=== PATIENT | male | born 1955 | race Caucasian/White ===

== ENCOUNTER 2016-07-18 08:22 | Emergency (ER) | payer OTHER ==
[2016-07-18] MEDS ORDERED: Heparin Sodium 5,000 Units/ML Vial IVPUSH ONE (09:00)
[2016-07-18] MEDS ORDERED: Metoprolol Tartrate 5 MG/5 ML SDV ONE (09:10)
[2016-07-18] MEDS ORDERED: Heparin Sodium 5,000 Units/ML Vial ONE (09:10)
[2016-07-18] MEDS ORDERED: Alteplase 2 MG Vial IVPUSH ONE (09:10)
[2016-07-18] MEDS ORDERED: Nitroglycerin/D5W 25 MG/250 ML BOTTLE ONE (09:11)
[2016-07-18] MEDS ORDERED: Clopidogrel 75 MG Tab PO ONE (09:14)
[2016-07-18] MEDS ORDERED: Aspirin 81 MG Tab.Chew PO ONE (09:14)
[2016-07-18] MEDS ORDERED: Metoprolol Tartrate 5 MG/5 ML SDV IVPUSH ONE (09:14)
[2016-07-18] MEDS ORDERED: Morphine 4 MG/ML Syringe IVPUSH ONE (09:15)
[2016-07-18] MEDS ORDERED: Nitroglycerin/D5W 25 MG/250 ML BOTTLE IV SCH (09:15)
[2016-07-18] MEDS ORDERED: Nitroglycerin 0.4 MG Tab.SL SL ONE (09:16)
[2016-07-18] MEDS ORDERED: Sodium Chloride 0.9% 10 ML Syringe FLUSH PRN (09:16)
[2016-07-18] MEDS: Heparin Sodium/D5W 25,000 UNITS/500 ML BAG ONE ×2 (09:20→09:53)
[2016-07-18] MEDS ORDERED: Sodium Chloride 0.9% 1,000 ML IV ONE (09:22)
[2016-07-18] MEDS ORDERED: Heparin Sodium/D5W 25,000 UNITS/500 ML BAG IV SCH (09:30)
[2016-07-18 21:25] VITALS: BP 126/77
--- NOTE | 2016-07-19 12:00 | CR ---
INDICATION: Chest discomfort. CHEST: An AP portable view of the chest was obtained x2, 07/18/2016, and revealed evidence of exogenous obesity as on the previous study of 09/08/2012 and 06/07/2012. Infiltrate present in the right upper lobe on the previous study is not definitely visualized at this time - a definite active infiltrate or effusion was not seen. The heart did not appear enlarged. Overlying EKG leads are noted. The aorta is somewhat tortuous. IMPRESSION: 1. No acute process. 2. Exogenous obesity. 3. Somewhat tortuous aorta. 4. Study somewhat limited by patients size and portable technique. Suggest full inspiration PA and lateral views when clinically possible for more complete evaluation. MTDD
--- NOTE | 2016-07-19 13:16 | ER ---
DATE SEEN: 07/18/2016 TIME SEEN: The patient was seen at 0845 hours. CHIEF COMPLAINT: Chest pain. HISTORY OF PRESENT ILLNESS: This 61-year-old status post 2000 LAD stent, 329- pound male had onset of chest pain at 0500 hours, that radiated to the left shoulder and intermittent without associated nausea, vomiting, diarrhea, diaphoresis, back pain, arm pain, jaw pain, neck pain, and lightheadedness. On arrival, at 0845, had ST-elevation anterior and lateral precordials. At 0848, , cardilogist, was called at [place]. 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 Dr. Potts has asked that lytics be utilized. Alteplase: 15 stat push, 50 over a half hour, 35 mg over the next half hour (alteplase). Heparin and clopidogrel 600 mg p.o. and 324-mg aspirin given. PHYSICAL EXAMINATION: GENERAL: Alert man in no acute distress. HEENT: PERRLA intact. Pharynx without abnormality. LUNGS: Clear to auscultation. HEART: S1, S2. No murmur. ABDOMEN: Soft. No guarding. No abdominal discomfort. Increased abdominal girth. No pedal edema. He has induration of left lower extremities (stasis dermatitis of venous insufficiency edema-induced increased skin turgor). Status post surgical pinning/left ankle fusion 04/26/2016. ASSESSMENT: Acute anterior lateral myocardial infarction. Arrangements were made for transfer with Dr. Thmoson, hospitalist, [place]. Dr. Lin here and writing other orders as these orders were placed. Dr. Lin will be assuming the patient's care. /[id number] HUMBERTO/SHANDA TANG
--- NOTE | 2016-08-03 01:37 | ER ---
DATE SEEN: 07/18/2016 This is regarding his note on 07/18/2016. As I previously indicated there was a change in shift and the other doctor was late, and I chose to have him finish and complete the others task. If he has not done that, then I will do that presently. In the future, just let me know. /[id number] HUMBERTO/SHANDA
== END 2016-07-18 10:10 | disposition home or self-care (01) ==
LOC: FB.ED 08:22
DX: I21.09 ST elevation (STEMI) myocardial infarction involving other coronary artery of anterior wall (principal)
CPT/HCPCS: 36415; 71010; 80053; 82550; 82553; 84484; 85025; 85610; 86140; 93005; 96365; 96368; 96375; 96376; 99285; A9270; J1644; J2270; J2997; J7040; J3490

== ENCOUNTER 2019-04-18 06:43 | Day surgery (SDC) | payer OTHER ==
[2019-04-18] MEDS ORDERED: Propofol 200 MG/20 ML SDV IV ONE (06:44)
[2019-04-18] MEDS ORDERED: Midazolam 1 MG/ML 2 ML SDV IV ONE (06:44)
[2019-04-18] MEDS ORDERED: Sodium Chloride 0.9% 10 ML Syringe FLUSH PRN (06:45)
[2019-04-18] MEDS ORDERED: Lactated Ringers 1,000 ML IV SCH (06:45)
[2019-04-18] MEDS ORDERED: Simethicone Drops 40 MG/0.6 ML 30 ML Bottle ONE (08:09)
--- NOTE | 2019-04-18 08:44 | PCM.OPNOTE ---
- General Post-Op/Procedure Note Date of Surgery/Procedure: 04/18/19 Operative Procedure(s): c scope with bx Findings: descending colon polyp Pre Op Diagnosis: screening colonoscopy Post-Op Diagnosis: descending colon polyp Anesthesia Technique: MAC Primary Surgeon: Elmer Phillips Anesthesia Provider: Sienna Gallo Pathology: descending colon polyp Complications: None Condition: Good Free Text/Narrative:: see dictation
[2019-04-18 09:53] VITALS: BP 134/67; PULSE 78
--- NOTE | 2019-04-18 12:52 | OR ---
DATE OF OPERATION: 04/18/2019 SURGEON: Elmer Phillips MD PREOPERATIVE DIAGNOSIS: Screening for colon cancer. POSTOPERATIVE DIAGNOSIS: Descending colon polyp. PROCEDURE PERFORMED: Colonoscopy with cold forceps biopsy. INDICATIONS FOR PROCEDURE: This is a 63-year-old white male who presents for his followup scope. He was offered and accepted same. DESCRIPTION OF OPERATION: After an excellent IV sedation was administered, digital rectal exam was performed. No marked abnormality was noted. Flexible colonoscope was inserted and advanced to the cecum. The prep was good. There were some areas that we had to irrigate because of some foaming. It should be noted that he did have some fair amount of spasm as well, but we were able to get a good view of the colon. Following findings were noted. Ascending colon, unremarkable. Transverse colon was unremarkable. Descending colon, small polypoid lesion, biopsied with cold biopsy forceps and sent for permanent. Sigmoid and rectum, unremarkable. Colon was deflated. Scope was removed. The patient tolerated the procedure well and was taken to recovery in good condition. Results by letter. /[id number] /MODL
== END 2019-04-18 09:40 | disposition home or self-care (01) ==
LOC: FB.SDS 06:43
PROVIDERS: ATTEND Surgery
DX: Z12.11 Encounter for screening for malignant neoplasm of colon (principal); K63.5 Polyp of colon; I10 Essential (primary) hypertension; I25.10 Atherosclerotic heart disease of native coronary artery without angina pectoris; E11.9 Type 2 diabetes mellitus without complications; E78.00 Pure hypercholesterolemia, unspecified; E66.01 Morbid (severe) obesity due to excess calories; Z68.42 Body mass index [BMI] 45.0-49.9, adult; Z79.84 Long term (current) use of oral hypoglycemic drugs; Z79.899 Other long term (current) drug therapy; Z79.82 Long term (current) use of aspirin; Z88.0 Allergy status to penicillin
CPT/HCPCS: 45380; 82962; 88305; A9270; J2250; J2704; J7120

== ENCOUNTER 2020-12-15 12:39 | Inpatient (IN) | payer OTHER ==
--- NOTE | 2020-12-15 12:46 | PCM.HP.2 ---
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 He has a h/o CHF,ischemic cardiomyopathy ( EF 40%),DM 2,stable with a recent A1c Of 6%. He has Obesity,CAD,and HTN that are otherwise stable.He does not endorse any other symptoms to indicate an alterative source of infection. - Related Data Allergies/Adverse Reactions: Allergies Allergy/AdvReac Type Severity Reaction Status Date / Time Penicillins Allergy Cannot Verified 04/18/19 07:38 Remember Home Medications: Home Meds Acetaminophen [Tylenol] 650 mg PO Q6HR PRN 04/16/19 [History] Aspirin [Halfprin] 81 mg PO DAILY 04/16/19 [History] Calcium Carbonate/Vitamin D3 [Calcium Carbonate/Vitamin D 600 MG-200 Unit] 1 tab PO BID 04/16/19 [History] Cholecalciferol (Vitamin D3) [Cholecalciferol] 1 gm MC BEDTIME 04/16/19 [History] Ferrous Sulfate 325 mg PO BEDTIME 04/16/19 [History] Furosemide [Lasix] 60 mg PO DAILY 04/16/19 [History] Metoprolol Succinate [Toprol XL 100mg] 100 mg PO DAILY 04/16/19 [History] Multivitamin with Folic Acid [Thera Tablet] 400 mcg PO BID 04/16/19 [History] Naproxen Sodium [Aleve] 220 mg PO DAILY 04/16/19 [History] Nitroglycerin [Nitrostat] 0.4 mg SL ASDIRECTED 04/16/19 [History] Sacubitril/Valsartan [Entresto 97 mg-103 mg Tablet] 1 each PO BID 04/16/19 [Hi story] atorvaSTATin [Lipitor] 80 mg PO BEDTIME 04/16/19 [History] metFORMIN [Glucophage] 1,000 mg PO BIDMEALS 04/16/19 [History] Past Medical History HEENT History: Reports: Cataract Cardiovascular History: Reports: Cardiomyopathy, High Cholesterol, Hypertension, [place], Pacemaker Other Cardiovascular History: coronary atherosclerosis, BILATERAL EDEMA OF LOWER EXTREMITY, DEPRESSED LEFT VENTRICULAR EF Respiratory History: Reports: Sleep Apnea Musculoskeletal History: Reports: Fracture Endocrine/Metabolic History: Reports: Diabetes, Type II, Obesity/BMI 30+ - Past Surgical History HEENT Surgical History: Reports: Tonsillectomy Other HEENT Surgeries/Procedures: TEETH EXTRACTION Cardiovascular Surgical History: Reports: Coronary Artery Stent Other Cardiovascular Surgeries/Procedures: CARDIAC CATHETERIZATION, PACEMAKER INSERTION GI Surgical History: Reports: Colonoscopy, Other (See Below) Other GI Surgeries/Procedures: LAP GASTRIC BYPASS Other Musculoskeletal Surgeries/Procedures:: ANKLE FUSION, ARTHRODESIS Social & Family History - Caffeine Use Caffeine Use: Reports: Coffee H&P Review of Systems - Review of Systems: Review Of Systems: Comprehensive ROS is negative, except as noted in HPI. Exam - Exam Exam: See Below - Exam General: Alert, Oriented, Cooperative HEENT: PERRLA Neck: Supple Lungs: Clear to Auscultation, Rhonchi Cardiovascular: Regular Rate GI/Abdominal Exam: Normal Bowel Sounds Back Exam: Normal Inspection Extremities: Increased Warmth, Redness, Other (Right lef is warm. A medial heel ulcer is noted. Tender.) Skin: Warm, Dry Neurological: Cranial Nerves Intact Neuro Extensive - Mental Status: Alert, Oriented x3, Normal Mood/Affect Neuro Extensive - Motor, Sensory, Reflexes: CN II-XII Intact Psychiatric: Alert, Normal Affect - Problem List (1) Diabetic infection of right foot SNOMED Code(s): 82930297 ICD Code: E11.628 - TYPE 2 DIABETES MELLITUS WITH OTHER SKIN COMPLICATIONS; L08.9 - LOCAL INFECTION OF THE SKIN AND SUBCUTANEOUS TISSUE, UNSP Status: Acute Current Visit: Yes (2) Diabetes type 2, controlled SNOMED Code(s): 11078359, 571029115 ICD Code: E11.9 - TYPE 2 DIABETES MELLITUS WITHOUT COMPLICATIONS Status: Chronic Current Visit: Yes Qualifiers: Diabetes mellitus predatory animal exterminator insulin use: without predatory animal exterminator use Diabetes mellitus complication status: without complication Qualified Code(s): E11.9 - Type 2 diabetes mellitus without complications (3) Obesity SNOMED Code(s): 604352921, 216910726 ICD Code: E66.9 - OBESITY, UNSPECIFIED Status: Chronic Current Visit: Yes Qualifiers: Obesity type: due to excess calories (4) Ischemic cardiomyopathy SNOMED Code(s): 119336668 ICD Code: I25.5 - ISCHEMIC CARDIOMYOPATHY Status: Acute Current Visit: Yes (5) CAD (coronary artery disease) SNOMED Code(s): 84951286 ICD Code: I25.10 - ATHSCL HEART DISEASE OF [place] CORONARY ARTERY W/O ANG PCTRS Status: Chronic Current Visit: Yes (6) CKD (chronic kidney disease) SNOMED Code(s): 792352423 ICD Code: N18.9 - CHRONIC KIDNEY DISEASE, UNSPECIFIED Status: Chronic Current Visit: Yes Qualifiers: Chronic kidney disease stage: stage 2 (mild) Qualified Code(s): N18.2 - Chronic kidney disease, stage 2 (mild) (7) HTN (hypertension) SNOMED Code(s): 22947209 ICD Code: I10 - ESSENTIAL (PRIMARY) HYPERTENSION Status: Chronic Current Visit: Yes Qualifiers: Hypertension type: primary hypertension Qualified Code(s): I10 - Essential (primary) hypertension Problem List Initiated/Reviewed/Updated: Yes Orders Last 24hrs: Active Orders 24 hr Category Date Time Status Patient Status [ADT] Routine ADT 12/15/20 12:40 Ordered Blood Glucose Check, Bedside [RC] TIDMEALS Care 12/15/20 12:40 Ordered Height and Weight [RC] DAILY Care 12/15/20 12:40 Ordered Oxygen Therapy [RC] PRN Care 12/15/20 12:40 Ordered Up ad Catie [RC] ASDIRECTED Care 12/15/20 12:40 Ordered VTE/DVT Education [RC] Per Unit Routine Care 12/15/20 12:40 Ordered Vital Signs [RC] Q4H Care 12/15/20 12:40 Ordered Consistent Carbohydrate Diet [DIET] Diet 12/15/20 Breakfast Ordered C-REACTIVE PROTEIN [CHEM] Routine Lab 12/15/20 12:40 Ordered CBC WITH AUTO DIFF [HEME] AM Lab 12/16/20 05:11 Ordered CBC WITH AUTO DIFF [HEME] Stat Lab 12/15/20 12:40 Ordered COMPREHENSIVE METABOLIC PN,CMP [CHEM] AM Lab 12/16/20 05:11 Ordered COMPREHENSIVE METABOLIC PN,CMP [CHEM] Stat Lab 12/15/20 12:40 Ordered CULTURE BLOOD [BC] Urgent Lab 12/15/20 12:42 Ordered CULTURE BLOOD [BC] Urgent Lab 12/15/20 12:42 Ordered CULTURE MRSA [RM] Stat Lab 12/15/20 12:40 Ordered SEDIMENTATION RATE MANUAL [HEME] Stat Lab 12/15/20 12:40 Ordered Acetaminophen [TylenoL] Med 12/15/20 12:40 Ordered 650 mg PO Q4H PRN Sodium Chloride 0.9% [Saline Flush] Med 12/15/20 12:40 Ordered 10 ml FLUSH ASDIRECTED PRN Vancomycin 1 gm Med 12/15/20 13:00 Ordered Sodium Chloride 0.9% [Normal Saline] 250 ml IV Q12H cefTRIAXone [Rocephin] Med 12/15/20 12:45 Ordered 1 gm IVPUSH Q24H Blood Culture x2 Reflex Set [OM.PC] Urgent Oth 12/15/20 12:40 Ordered Peripheral IV Insertion Adult [OM.PC] Routine Oth 12/15/20 12:40 Ordered Resuscitation Status Routine Resus Stat 12/15/20 12:40 Ordered Assessment/Plan Comment:: Admit to inpatient for parenteral antibiotics. I have elected Ceftriaxone and Vancomycin for pharmacy to dose. I suggest an MRI of the foot to classify the ulcer,and rule out Osteomyelitis.May need debridement by general surgery .
[2020-12-15] MEDS: Sodium Chloride 0.9% 10 ML Syringe FLUSH PRN ×3 (14:00→16:04)
[2020-12-15] MEDS: cefTRIAXone 1 GM Vial IVPUSH SCH (14:08)
--- NOTE | 2020-12-15 14:22 | PCM.SN.2 ---
- Free Text/Narrative Note: [facility] Date: 12/15/2020 Time: 1351 to 1400 Dx: DM type 2 with nonhealing foot ulcer, Antibiotic Therapy and Poor Peripheral Venous Access Rx: Obtain Peripheral Venous Access Procedure: Placement Peripheral Venous Access I found a vein on his right lateral ACF area and prepped the area with several alcohol wipes. Using a BD [employer] BC Winged 20 Ga. X 1.16 In. catheter, I attempted insertion times 2 with easy advancement and 10 ml's of normal saline flush. I placed a sterile Op-Site dressing on. He tolerated this very well. Kristian Miles CRNA, A
[2020-12-15] MEDS ORDERED: traMADol 50 MG Tab PO PRN (16:00)
[2020-12-15] MEDS ORDERED: Acetaminophen 325 MG Tab PO PRN (16:01)
[2020-12-15] MEDS: VANCOmycin 2 GM/400 ML 400 ML IV SCH (16:04)
[2020-12-15] MEDS: Ketorolac 30 MG/ML SDV IVPUSH PRN (16:09)
[2020-12-15] MEDS: Acetaminophen 325 MG Tab PO PRN (17:10)
[2020-12-15] MEDS: metFORMIN 1,000 MG Tab PO SCH (17:20)
[2020-12-15] MEDS: atorvaSTATin 40 MG Tab PO SCH (21:09)
[2020-12-15] MEDS: Calcium Carbonate 500 MG Tablet PO SCH (21:09)
[2020-12-15] MEDS: Multivitamin Tab PO SCH (21:10)
[2020-12-15] MEDS: VALSARTAN PO SCH (21:11)
[2020-12-15] MEDS: SACUBITRIL PO SCH (21:11)
[2020-12-16] MEDS: VANCOmycin 2 GM/400 ML 400 ML IV SCH ×2 (04:10→16:10)
[2020-12-16] MEDS: Sodium Chloride 0.9% 10 ML Syringe FLUSH PRN ×3 (04:24→16:04)
[2020-12-16] MEDS: Acetaminophen 325 MG Tab PO PRN ×3 (04:54→20:44)
[2020-12-16] MEDS ORDERED: Gadoteridol 279.3 MG/ML 20 ML SDV IV ONE (08:40)
[2020-12-16] MEDS: metFORMIN 1,000 MG Tab PO SCH ×2 (09:13→17:50)
[2020-12-16] MEDS: Furosemide 40 MG Tab PO SCH (09:18)
[2020-12-16] MEDS: Multivitamin Tab PO SCH ×2 (09:18→20:41)
[2020-12-16] MEDS: Calcium Carbonate 500 MG Tablet PO SCH ×2 (09:18→20:41)
[2020-12-16] MEDS: Aspirin 81 MG Tab.EC PO SCH (09:18)
[2020-12-16] MEDS: SACUBITRIL PO SCH ×2 (09:19→20:41)
[2020-12-16] MEDS: VALSARTAN PO SCH ×2 (09:19→20:41)
[2020-12-16] MEDS: Metoprolol Succinate 100 MG Tab.ER PO SCH (09:20)
--- NOTE | 2020-12-16 09:20 | PCM.PN ---
- General Info Date of Service: 12/16/20 Subjective Update: Sergio's has improved, his pain is much better. He has no more fever or any other systemic symptoms. - Review of Systems General: Reports: No Symptoms HEENT: Reports: No Symptoms Pulmonary: Reports: No Symptoms Cardiovascular: Reports: No Symptoms Gastrointestinal: Reports: No Symptoms - Patient Data Vitals - Most Recent: Last Vital Signs Temp 98.1 F 12/16/20 04:00 Pulse 86 12/16/20 04:00 Resp 20 12/16/20 04:00 BP 134/74 12/16/20 04:00 Pulse Ox 94 L 12/16/20 04:00 Weight - Most Recent: 146.17 kg I&O - Last 24 Hours: Intake & Output 12/15/20 12/16/20 12/16/20 22:59 06:59 14:59 Intake Total 400 400 Balance 400 400 Lab Results Last 24 Hours: Laboratory Results - last 24 hr 12/15/20 12/15/20 12/15/20 Range/Units 13:45 13:45 13:45 WBC 9.1 (3.2-10.1) x10-3/uL RBC 3.76 L (3.90-5.90) x10(6)uL Hgb 10.7 L (12.9-17.7) g/dL Hct 33.1 L (38.3-50.1) % MCV 88.1 (80.8-98.7) fL MCH 28.6 (27.0-33.3) pg MCHC 32.4 (28.7-35.3) g/dL RDW 13.9 (12.4-15.0) % Plt Count 236 (117-477) x10(3)uL MPV 8.0 (6.7-11.0) fL Neut % (Auto) 89.3 H (40.3-71.8) % Lymph % (Auto) 2.4 L (15.8-45.3) % Porter % (Auto) 7.5 (5.5-15.2) % Eos % (Auto) 0.4 (0.1-6.8) % Baso % (Auto) 0.4 (0.3-3.8) % Neut # (Auto) 8.1 H (1.7-6.9) x10-3/uL Lymph # (Auto) 0.2 L (0.5-4.5) x10-3/uL Porter # (Auto) 0.7 (0.0-1.2) x10-3/uL Eos # (Auto) 0.0 (0.0-0.6) x10-3/uL Baso # (Auto) 0.0 (0.0-0.3) x10-3/uL ESR 28 H (0-15) mm/hr Sodium 137 (135-145) mmol/L Potassium 4.4 (3.5-5.3) mmol/L Chloride 101 (100-110) mmol/L Carbon Dioxide 24 (21-32) mmol/L BUN 24 H (7-18) mg/dL Creatinine 1.6 H (0.70-1.30) mg/dL Est Cr Clr Drug Dosing 51.87 mL/min Estimated GFR (MDRD) 44 L (>60) BUN/Creatinine Ratio 15.0 (9-20) Glucose 159 H (80-116) mg/dL POC Glucose (80-116) mg/dL Calcium 9.2 (8.6-10.2) mg/dL Total Bilirubin 1.2 (0.1-1.3) mg/dL AST 19 (5-25) IU/L ALT 22 (12-36) U/L Alkaline Phosphatase 86 (56-112) IU/L C-Reactive Protein 12.7 H* (0.5-0.9) mg/dL Total Protein 7.0 (6.0-8.0) g/dL Albumin 3.4 (3.2-4.6) g/dL Globulin 3.6 g/dL Albumin/Globulin Ratio 0.9 12/15/20 12/16/20 12/16/20 Range/Units 17:16 06:05 06:05 WBC 7.1 (3.2-10.1) x10-3/uL RBC 3.61 L (3.90-5.90) x10(6)uL Hgb 10.3 L (12.9-17.7) g/dL Hct 31.8 L (38.3-50.1) % MCV 88.0 (80.8-98.7) fL MCH 28.5 (27.0-33.3) pg MCHC 32.4 (28.7-35.3) g/dL RDW 13.7 (12.4-15.0) % Plt Count 220 (117-477) x10(3)uL MPV 7.7 (6.7-11.0) fL Neut % (Auto) 80.4 H (40.3-71.8) % Lymph % (Auto) 5.8 L (15.8-45.3) % Porter % (Auto) 9.1 (5.5-15.2) % Eos % (Auto) 4.1 (0.1-6.8) % Baso % (Auto) 0.6 (0.3-3.8) % Neut # (Auto) 5.7 (1.7-6.9) x10-3/uL Lymph # (Auto) 0.4 L (0.5-4.5) x10-3/uL Porter # (Auto) 0.6 (0.0-1.2) x10-3/uL Eos # (Auto) 0.3 (0.0-0.6) x10-3/uL Baso # (Auto) 0.0 (0.0-0.3) x10-3/uL ESR (0-15) mm/hr Sodium 136 (135-145) mmol/L Potassium 4.6 (3.5-5.3) mmol/L Chloride 101 (100-110) mmol/L Carbon Dioxide 24 (21-32) mmol/L BUN 27 H (7-18) mg/dL Creatinine 1.6 H (0.70-1.30) mg/dL Est Cr Clr Drug Dosing 51.87 mL/min Estimated GFR (MDRD) 44 L (>60) BUN/Creatinine Ratio 16.9 (9-20) Glucose 135 H (80-116) mg/dL POC Glucose 192 H (80-116) mg/dL Calcium 8.3 L (8.6-10.2) mg/dL Total Bilirubin 1.0 (0.1-1.3) mg/dL AST 16 D (5-25) IU/L ALT 19 D (12-36) U/L Alkaline Phosphatase 80 (56-112) IU/L C-Reactive Protein (0.5-0.9) mg/dL Total Protein 6.4 (6.0-8.0) g/dL Albumin 3.0 L (3.2-4.6) g/dL Globulin 3.4 g/dL Albumin/Globulin Ratio 0.9 Med Orders - Current: Current Medications Acetaminophen (Acetaminophen 325 Mg Tab) 650 mg PO Q4H PRN PRN Reason: Pain (Mild 1-3)/fever Last Admin: 12/16/20 04:54 Dose: 650 mg Documented by: Acetaminophen (Acetaminophen 325 Mg Tab) 325 mg PO Q4H PRN PRN Reason: Pain Aspirin (Aspirin 81 Mg Tab.Ec) 81 mg PO DAILY [facility] Atorvastatin Calcium (Atorvastatin 40 Mg Tab) 40 mg PO BEDTIME [facility] Last Admin: 12/15/20 21:09 Dose: 40 mg Documented by: Calcium Carbonate/Glycine (Calcium Carbonate 500 Mg Tablet) 500 mg PO BID [facility] Last Admin: 12/15/20 21:09 Dose: 500 mg Documented by: Ceftriaxone Sodium (Ceftriaxone 1 Gm Vial) 1 gm IVPUSH Q24H [facility] Last Admin: 12/15/20 14:08 Dose: 1 gm Documented by: Furosemide (Furosemide 40 Mg Tab) 40 mg PO DAILY [facility] Gadoteridol (Gadoteridol 279.3 Mg/Ml 20 Ml Sdv) 20 ml IV . DIRECTED ONE Stop: 12/16/20 08:41 Vancomycin HCl (Vancomycin 2 Gm/400 Ml) 400 mls @ 200 mls/hr IV Q12H [facility] Last Admin: 12/16/20 04:10 Dose: 200 mls/hr Documented by: Ketorolac Tromethamine (Ketorolac 30 Mg/Ml Sdv) 30 mg IVPUSH Q6H PRN PRN Reason: Breakthrough Pain Stop: 12/20/20 16:00 Last Admin: 12/15/20 16:09 Dose: 30 mg Documented by: Metformin HCl (Metformin 1,000 Mg Tab) 1,000 mg PO BIDMEALS [facility] Last Admin: 12/15/20 17:20 Dose: 1,000 mg Documented by: Metoprolol Succinate (Metoprolol Succinate 100 Mg Tab.Er) 100 mg PO DAILY [facility] Multivitamins/Minerals/Vitamin C (Multivitamin Tab) 1 tab PO BID [facility] Last Admin: 12/15/20 21:10 Dose: 1 tab Documented by: Entresto 97 Mg-103 (Mg Table *Ptom) 1 each PO BID [facility] Last Admin: 12/15/20 21:11 Dose: 1 each Documented by: Sitagliptin Phosphate (Sitagliptin 100 Mg Tab) 100 mg PO DAILY [facility] Sodium Chloride (Sodium Chloride 0.9% 10 Ml Syringe) 10 ml FLUSH ASDIRECTED PRN PRN Reason: Keep Vein Open Last Admin: 12/16/20 04:24 Dose: 10 ml Documented by: Tramadol HCl (Tramadol 50 Mg Tab) 50 mg PO Q6H PRN PRN Reason: Breakthrough Pain Vancomycin HCl (Pharmacy To Dose - Vancomycin) 1 dose .XX ASDIRECTED PRUDENCIO - Exam General: Alert, Oriented Extremities: Other (Right foot ulcer noted. invoming subcutaneus tissue.pulses present). No: Pedal Edema - Patient Data Lab Results Last 24 hrs: Laboratory Results - last 24 hr 12/15/20 12/15/20 12/15/20 Range/Units 13:45 13:45 13:45 WBC 9.1 (3.2-10.1) x10-3/uL RBC 3.76 L (3.90-5.90) x10(6)uL Hgb 10.7 L (12.9-17.7) g/dL Hct 33.1 L (38.3-50.1) % MCV 88.1 (80.8-98.7) fL MCH 28.6 (27.0-33.3) pg MCHC 32.4 (28.7-35.3) g/dL RDW 13.9 (12.4-15.0) % Plt Count 236 (117-477) x10(3)uL MPV 8.0 (6.7-11.0) fL Neut % (Auto) 89.3 H (40.3-71.8) % Lymph % (Auto) 2.4 L (15.8-45.3) % Porter % (Auto) 7.5 (5.5-15.2) % Eos % (Auto) 0.4 (0.1-6.8) % Baso % (Auto) 0.4 (0.3-3.8) % Neut # (Auto) 8.1 H (1.7-6.9) x10-3/uL Lymph # (Auto) 0.2 L (0.5-4.5) x10-3/uL Porter # (Auto) 0.7 (0.0-1.2) x10-3/uL Eos # (Auto) 0.0 (0.0-0.6) x10-3/uL Baso # (Auto) 0.0 (0.0-0.3) x10-3/uL ESR 28 H (0-15) mm/hr Sodium 137 (135-145) mmol/L Potassium 4.4 (3.5-5.3) mmol/L Chloride 101 (100-110) mmol/L Carbon Dioxide 24 (21-32) mmol/L BUN 24 H (7-18) mg/dL Creatinine 1.6 H (0.70-1.30) mg/dL Est Cr Clr Drug Dosing 51.87 mL/min Estimated GFR (MDRD) 44 L (>60) BUN/Creatinine Ratio 15.0 (9-20) Glucose 159 H (80-116) mg/dL POC Glucose (80-116) mg/dL Calcium 9.2 (8.6-10.2) mg/dL Total Bilirubin 1.2 (0.1-1.3) mg/dL AST 19 (5-25) IU/L ALT 22 (12-36) U/L Alkaline Phosphatase 86 (56-112) IU/L C-Reactive Protein 12.7 H* (0.5-0.9) mg/dL Total Protein 7.0 (6.0-8.0) g/dL Albumin 3.4 (3.2-4.6) g/dL Globulin 3.6 g/dL Albumin/Globulin Ratio 0.9 12/15/20 12/16/20 12/16/20 Range/Units 17:16 06:05 06:05 WBC 7.1 (3.2-10.1) x10-3/uL RBC 3.61 L (3.90-5.90) x10(6)uL Hgb 10.3 L (12.9-17.7) g/dL Hct 31.8 L (38.3-50.1) % MCV 88.0 (80.8-98.7) fL MCH 28.5 (27.0-33.3) pg MCHC 32.4 (28.7-35.3) g/dL RDW 13.7 (12.4-15.0) % Plt Count 220 (117-477) x10(3)uL MPV 7.7 (6.7-11.0) fL Neut % (Auto) 80.4 H (40.3-71.8) % Lymph % (Auto) 5.8 L (15.8-45.3) % Porter % (Auto) 9.1 (5.5-15.2) % Eos % (Auto) 4.1 (0.1-6.8) % Baso % (Auto) 0.6 (0.3-3.8) % Neut # (Auto) 5.7 (1.7-6.9) x10-3/uL Lymph # (Auto) 0.4 L (0.5-4.5) x10-3/uL Porter # (Auto) 0.6 (0.0-1.2) x10-3/uL Eos # (Auto) 0.3 (0.0-0.6) x10-3/uL Baso # (Auto) 0.0 (0.0-0.3) x10-3/uL ESR (0-15) mm/hr Sodium 136 (135-145) mmol/L Potassium 4.6 (3.5-5.3) mmol/L Chloride 101 (100-110) mmol/L Carbon Dioxide 24 (21-32) mmol/L BUN 27 H (7-18) mg/dL Creatinine 1.6 H (0.70-1.30) mg/dL Est Cr Clr Drug Dosing 51.87 mL/min Estimated GFR (MDRD) 44 L (>60) BUN/Creatinine Ratio 16.9 (9-20) Glucose 135 H (80-116) mg/dL POC Glucose 192 H (80-116) mg/dL Calcium 8.3 L (8.6-10.2) mg/dL Total Bilirubin 1.0 (0.1-1.3) mg/dL AST 16 D (5-25) IU/L ALT 19 D (12-36) U/L Alkaline Phosphatase 80 (56-112) IU/L C-Reactive Protein (0.5-0.9) mg/dL Total Protein 6.4 (6.0-8.0) g/dL Albumin 3.0 L (3.2-4.6) g/dL Globulin 3.4 g/dL Albumin/Globulin Ratio 0.9 Result Diagrams: 12/16/20 06:05 12/16/20 06:05 Sepsis Event Note - Evaluation Sepsis Screening Result: No Definite Risk - Focused Exam Vital Signs: Vital Signs Temp Pulse Resp BP Pulse Ox 12/16/20 04:00 98.1 F 86 20 134/74 94 L 12/16/20 01:00 98.4 F 86 20 128/70 95 - Problem List & Annotations (1) Diabetic infection of right foot SNOMED Code(s): 51367331 Code(s): E11.628 - TYPE 2 DIABETES MELLITUS WITH OTHER SKIN COMPLICATIONS; L08.9 - LOCAL INFECTION OF THE SKIN AND SUBCUTANEOUS TISSUE, UNSP Status: Acute Current Visit: Yes (2) Diabetes type 2, controlled SNOMED Code(s): 95919564, 315892498 Code(s): E11.9 - TYPE 2 DIABETES MELLITUS WITHOUT COMPLICATIONS Status: Chronic Current Visit: Yes Qualifiers: Diabetes mellitus terminal operations manager insulin use: without long-term use Diabetes mellitus complication status: without complication Qualified Code(s): E11.9 - Type 2 diabetes mellitus without complications (3) Obesity SNOMED Code(s): 685548878, 058422462 Code(s): E66.9 - OBESITY, UNSPECIFIED Status: Chronic Current Visit: Yes Qualifiers: Obesity type: due to excess calories (4) Ischemic cardiomyopathy SNOMED Code(s): 100466633 Code(s): I25.5 - ISCHEMIC CARDIOMYOPATHY Status: Acute Current Visit: Yes (5) CAD (coronary artery disease) SNOMED Code(s): 45121567 Code(s): I25.10 - ATHSCL HEART DISEASE OF [place] CORONARY ARTERY W/O ANG PCTRS Status: Chronic Current Visit: Yes (6) CKD (chronic kidney disease) SNOMED Code(s): 295827553 Code(s): N18.9 - CHRONIC KIDNEY DISEASE, UNSPECIFIED Status: Chronic Current Visit: Yes Qualifiers: Chronic kidney disease stage: stage 2 (mild) Qualified Code(s): N18.2 - Chronic kidney disease, stage 2 (mild) (7) HTN (hypertension) SNOMED Code(s): 40379537 Code(s): I10 - ESSENTIAL (PRIMARY) HYPERTENSION Status: Chronic Current Visit: Yes Qualifiers: Hypertension type: primary hypertension Qualified Code(s): I10 - Essential (primary) hypertension - Problem List Review Problem List Initiated/Reviewed/Updated: Yes - My Orders Last 24 Hours: My Active Orders 12/15/20 12:40 Patient Status [ADT] Routine Blood Glucose Check, Bedside [RC] TIDMEALS Height and Weight [RC] 06 Oxygen Therapy [RC] PRN Up ad Catie [RC] ASDIRECTED VTE/DVT Education [RC] Per Unit Routine Vital Signs [RC] 08,12,16,20,00,04 Acetaminophen [TylenoL] 650 mg PO Q4H PRN Sodium Chloride 0.9% [Saline Flush] 10 ml FLUSH ASDIRECTED PRN Blood Culture x2 Reflex Set [OM.PC] Urgent Peripheral IV Insertion Adult [OM.PC] Routine Resuscitation Status Routine 12/15/20 12:45 cefTRIAXone [Rocephin] 1 gm IVPUSH Q24H 12/15/20 13:25 CULTURE MRSA [RM] Stat 12/15/20 13:45 CULTURE BLOOD [BC] Urgent 12/15/20 13:50 CULTURE BLOOD [BC] Urgent 12/15/20 16:00 Ketorolac [Toradol] 30 mg IVPUSH Q6H PRN VANCOmycin 2 GM/400 ML 400 ml IV Q12H traMADol [Ultram] 50 mg PO Q6H PRN 12/15/20 16:01 Acetaminophen [TylenoL] 325 mg PO Q4H PRN 12/15/20 16:15 Pharmacy to Dose - Vancomycin 1 dose .XX ASDIRECTED 12/15/20 18:00 metFORMIN [Glucophage] 1,000 mg PO BIDMEALS 12/15/20 21:00 Calcium Carbonate [Oyster Shell Calcium] 500 mg PO BID Multivitamins [Tab-A-Veronica] 1 tab PO BID Sacubitril/Valsartan [Entresto 97 mg-103 mg Tablet] 1 each PO BID atorvaSTATin [Lipitor] 40 mg PO BEDTIME 12/16/20 07:00 Lwr Ext Non Joint w wo Cont Rt [MR] Routine 12/16/20 08:40 Gadoteridol [ProHance] 20 ml IV . DIRECTED ONE 12/16/20 09:00 Aspirin [Halfprin] 81 mg PO DAILY Furosemide [Lasix] 40 mg PO DAILY Metoprolol Succinate [Toprol XL] 100 mg PO DAILY SitaGLIPtin [Januvia] 100 mg PO DAILY 12/17/20 03:30 VANCOMYCIN TROUGH [CHEM] Timed 12/17/20 05:11 BASIC METABOLIC PANEL,BMP [CHEM] AM CBC WITH AUTO DIFF [HEME] AM CRP [C-REACTIVE PROTEIN] [CHEM] AM SEDIMENTATION RATE MANUAL [HEME] AM - Plan Plan:: Continue IV antibiotics. Await MRI results. Continue local wound care, he might need debridement, and I will consult general surgery.
[2020-12-16] MEDS: cefTRIAXone 1 GM Vial IVPUSH SCH (13:18)
--- NOTE | 2020-12-16 17:32 | PCM.OPNOTE ---
- General Post-Op/Procedure Note Date of Surgery/Procedure: 12/16/20 Operative Procedure(s): Debridement of right foot ulcer Findings: superficial necrotic tissue on right foot ulcer Pre Op Diagnosis: Diabetic foot ulcer Post-Op Diagnosis: Same Primary Surgeon: Willie Magana Pathology: none EBL in mLs: 0 Complications: None Condition: Good Free Text/Narrative:: Intake & Output 12/16/20 12/16/20 12/16/20 06:59 14:59 22:59 Intake Total 400 400 Balance 400 400
[2020-12-16] MEDS: atorvaSTATin 40 MG Tab PO SCH (20:41)
--- NOTE | 2020-12-16 20:44 | PROC ---
DATE OF PROCEDURE: 12/16/2020 This 65-year-old male is seen today at the request of Dr. Dasilva for evaluation of a right diabetic foot ulcer. He thinks this first started about three weeks ago when he walked in his tennis shoes without socks. Three days ago, he began having pain at the site of a skin ulceration on the medial aspect of his right heel and infection was identified prompting hospitalization yesterday. The patient has been getting dressing changes and IV antibiotics for this. He says that he feels much better now than he did upon admission. He has remained afebrile. Review of his laboratory studies shows that his white blood cell count is normal. He also has a culture of this wound pending. Examination shows on the medial aspect of the right heel, a 1 cm full-thickness skin ulcer. There is some callus surrounding the area, but this is not a thick ulcer edge. I do not feel any crepitus or underlying fluctuance. There is some necrotic tissue visible in the base of the ulcer. Additional diagnostic data are that of an MRI, which was recently performed of this right foot. The MRI did not show any indication of underlying abscess or tunneling to the bone. Also, the bones of the heel were not felt to be involved with osteomyelitis. Because of the necrotic tissue in the wound, I advised sharp debridement of this to assist with wound healing, and the patient agrees to this. In the depths of this ulcer, then a small amount of superficial necrotic tissue was sharply excised with iris scissors. This was carried down to bleeding tissue and visible necrotic tissue was excised with this. This was tolerated well by the patient with minimal discomfort. Dressings were reapplied, and the patient will continue care with local wound care and IV antibiotics. I will see him back p.[email or web address] /[id number] [id number] DARRYL/SHANDA
[2020-12-17] MEDS: Ketorolac 30 MG/ML SDV IVPUSH PRN (03:52)
[2020-12-17] MEDS: Sodium Chloride 0.9% 10 ML Syringe FLUSH PRN ×2 (03:54→12:29)
[2020-12-17] MEDS: VANCOmycin 2 GM/400 ML 400 ML IV SCH (04:27)
[2020-12-17] MEDS: metFORMIN 1,000 MG Tab PO SCH ×2 (08:05→17:15)
[2020-12-17] MEDS: Metoprolol Succinate 100 MG Tab.ER PO SCH (08:06)
[2020-12-17] MEDS: Aspirin 81 MG Tab.EC PO SCH (08:06)
[2020-12-17] MEDS: Calcium Carbonate 500 MG Tablet PO SCH ×2 (08:08→20:37)
[2020-12-17] MEDS: Furosemide 40 MG Tab PO SCH (08:08)
[2020-12-17] MEDS: VALSARTAN PO SCH ×2 (08:09→20:37)
[2020-12-17] MEDS: SACUBITRIL PO SCH ×2 (08:09→20:37)
[2020-12-17] MEDS: Multivitamin Tab PO SCH ×2 (08:09→20:37)
--- NOTE | 2020-12-17 08:39 | PCM.PN ---
- General Info Date of Service: 12/17/20 Subjective Update: Sergio's has improved, his pain is much better after Toradol. He has no more fever or any other systemic symptoms.Dr Magana sharply debrided the ulcer. Functional Status: Reports: Pain Controlled, Tolerating Diet - Review of Systems General: Reports: No Symptoms HEENT: Reports: No Symptoms Pulmonary: Reports: No Symptoms Cardiovascular: Reports: No Symptoms Gastrointestinal: Reports: No Symptoms - Patient Data Vitals - Most Recent: Last Vital Signs Temp 98.8 F 12/17/20 04:00 Pulse 76 12/17/20 08:06 Resp 20 12/17/20 04:00 BP 118/76 12/17/20 08:06 Pulse Ox 93 L 12/17/20 04:00 Weight - Most Recent: 146.198 kg I&O - Last 24 Hours: Intake & Output 12/16/20 12/17/20 12/17/20 22:59 06:59 14:59 Intake Total 378 Balance 378 Lab Results Last 24 Hours: Laboratory Results - last 24 hr 12/16/20 12/16/20 12/17/20 Range/Units 13:17 17:45 03:30 WBC (3.2-10.1) x10-3/uL RBC (3.90-5.90) x10(6)uL Hgb (12.9-17.7) g/dL Hct (38.3-50.1) % MCV (80.8-98.7) fL MCH (27.0-33.3) pg MCHC (28.7-35.3) g/dL RDW (12.4-15.0) % Plt Count (117-477) x10(3)uL MPV (6.7-11.0) fL Neut % (Auto) (40.3-71.8) % Lymph % (Auto) (15.8-45.3) % [place] % (Auto) (5.5-15.2) % Eos % (Auto) (0.1-6.8) % Baso % (Auto) (0.3-3.8) % Neut # (Auto) (1.7-6.9) x10-3/uL Lymph # (Auto) (0.5-4.5) x10-3/uL [place] # (Auto) (0.0-1.2) x10-3/uL Eos # (Auto) (0.0-0.6) x10-3/uL Baso # (Auto) (0.0-0.3) x10-3/uL ESR (0-15) mm/hr Sodium (135-145) mmol/L Potassium (3.5-5.3) mmol/L Chloride (100-110) mmol/L Carbon Dioxide (21-32) mmol/L BUN (7-18) mg/dL Creatinine (0.70-1.30) mg/dL Est Cr Clr Drug Dosing mL/min Estimated GFR (MDRD) (>60) BUN/Creatinine Ratio (9-20) Glucose (80-116) mg/dL POC Glucose 168 H 155 H (80-116) mg/dL Calcium (8.6-10.2) mg/dL C-Reactive Protein (0.5-0.9) mg/dL Vancomycin Trough 28.2 H (<0.8) ug/mL 12/17/20 12/17/20 12/17/20 Range/Units 03:30 03:30 03:30 WBC 6.4 (3.2-10.1) x10-3/uL RBC 3.66 L (3.90-5.90) x10(6)uL Hgb 10.4 L (12.9-17.7) g/dL Hct 32.3 L (38.3-50.1) % MCV 88.0 (80.8-98.7) fL MCH 28.3 (27.0-33.3) pg MCHC 32.2 (28.7-35.3) g/dL RDW 13.9 (12.4-15.0) % Plt Count 248 (117-477) x10(3)uL MPV 7.7 (6.7-11.0) fL Neut % (Auto) 77.7 H (40.3-71.8) % Lymph % (Auto) 5.4 L (15.8-45.3) % [place] % (Auto) 10.8 (5.5-15.2) % Eos % (Auto) 5.4 (0.1-6.8) % Baso % (Auto) 0.7 (0.3-3.8) % Neut # (Auto) 5.0 (1.7-6.9) x10-3/uL Lymph # (Auto) 0.3 L (0.5-4.5) x10-3/uL [place] # (Auto) 0.7 (0.0-1.2) x10-3/uL Eos # (Auto) 0.3 (0.0-0.6) x10-3/uL Baso # (Auto) 0.0 (0.0-0.3) x10-3/uL ESR 33 H (0-15) mm/hr Sodium 138 (135-145) mmol/L Potassium 4.6 (3.5-5.3) mmol/L Chloride 104 (100-110) mmol/L Carbon Dioxide 23 (21-32) mmol/L BUN 33 H (7-18) mg/dL Creatinine 1.5 H (0.70-1.30) mg/dL Est Cr Clr Drug Dosing 55.33 mL/min Estimated GFR (MDRD) 47 L (>60) BUN/Creatinine Ratio 22.0 H (9-20) Glucose 169 H (80-116) mg/dL POC Glucose (80-116) mg/dL Calcium 8.8 (8.6-10.2) mg/dL C-Reactive Protein 9.1 H* (0.5-0.9) mg/dL Vancomycin Trough (<0.8) ug/mL 12/17/20 Range/Units 08:03 WBC (3.2-10.1) x10-3/uL RBC (3.90-5.90) x10(6)uL Hgb (12.9-17.7) g/dL Hct (38.3-50.1) % MCV (80.8-98.7) fL MCH (27.0-33.3) pg MCHC (28.7-35.3) g/dL RDW (12.4-15.0) % Plt Count (117-477) x10(3)uL MPV (6.7-11.0) fL Neut % (Auto) (40.3-71.8) % Lymph % (Auto) (15.8-45.3) % [place] % (Auto) (5.5-15.2) % Eos % (Auto) (0.1-6.8) % Baso % (Auto) (0.3-3.8) % Neut # (Auto) (1.7-6.9) x10-3/uL Lymph # (Auto) (0.5-4.5) x10-3/uL [place] # (Auto) (0.0-1.2) x10-3/uL Eos # (Auto) (0.0-0.6) x10-3/uL Baso # (Auto) (0.0-0.3) x10-3/uL ESR (0-15) mm/hr Sodium (135-145) mmol/L Potassium (3.5-5.3) mmol/L Chloride (100-110) mmol/L Carbon Dioxide (21-32) mmol/L BUN (7-18) mg/dL Creatinine (0.70-1.30) mg/dL Est Cr Clr Drug Dosing mL/min Estimated GFR (MDRD) (>60) BUN/Creatinine Ratio (9-20) Glucose (80-116) mg/dL POC Glucose 177 H (80-116) mg/dL Calcium (8.6-10.2) mg/dL C-Reactive Protein (0.5-0.9) mg/dL Vancomycin Trough (<0.8) ug/mL Rui Results Last 24 Hours: Microbiology 12/15/20 13:45 Aerobic Blood Culture - Preliminary Blood - Venous - Lab Draw NO GROWTH AFTER 1 DAY Anaerobic Blood Culture - Preliminary NO GROWTH AFTER 1 DAY 12/15/20 13:50 Aerobic Blood Culture - Preliminary Blood - Venous NO GROWTH AFTER 1 DAY Anaerobic Blood Culture - Preliminary NO GROWTH AFTER 1 DAY Med Orders - Current: Current Medications Acetaminophen (Acetaminophen 325 Mg Tab) 650 mg PO Q4H PRN PRN Reason: Pain (Mild 1-3)/fever Last Admin: 12/16/20 20:44 Dose: 650 mg Documented by: Acetaminophen (Acetaminophen 325 Mg Tab) 325 mg PO Q4H PRN PRN Reason: Pain Aspirin (Aspirin 81 Mg Tab.Ec) 81 mg PO DAILY [facility] Last Admin: 12/17/20 08:06 Dose: 81 mg Documented by: Atorvastatin Calcium (Atorvastatin 40 Mg Tab) 40 mg PO BEDTIME [facility] Last Admin: 12/16/20 20:41 Dose: 40 mg Documented by: Calcium Carbonate/Glycine (Calcium Carbonate 500 Mg Tablet) 500 mg PO BID [facility] Last Admin: 12/17/20 08:08 Dose: 500 mg Documented by: Ceftriaxone Sodium (Ceftriaxone 1 Gm Vial) 1 gm IVPUSH Q24H [facility] Last Admin: 12/16/20 13:18 Dose: 1 gm Documented by: Furosemide (Furosemide 40 Mg Tab) 40 mg PO DAILY [facility] Last Admin: 12/17/20 08:08 Dose: 40 mg Documented by: Vancomycin HCl (Vancomycin 1 Gm/200 Ml) 200 mls @ 200 mls/hr IV Q12H [facility] Ketorolac Tromethamine (Ketorolac 30 Mg/Ml Sdv) 30 mg IVPUSH Q6H PRN PRN Reason: Breakthrough Pain Stop: 12/20/20 16:00 Last Admin: 12/17/20 03:52 Dose: 30 mg Documented by: Metformin HCl (Metformin 1,000 Mg Tab) 1,000 mg PO BIDMEALS [facility] Last Admin: 12/17/20 08:05 Dose: 1,000 mg Documented by: Metoprolol Succinate (Metoprolol Succinate 100 Mg Tab.Er) 100 mg PO DAILY [facility] Last Admin: 12/17/20 08:06 Dose: 100 mg Documented by: Multivitamins/Minerals/Vitamin C (Multivitamin Tab) 1 tab PO BID [facility] Last Admin: 12/17/20 08:09 Dose: 1 tab Documented by: Entresto 97 Mg-103 (Mg Table *Ptom) 1 each PO BID [facility] Last Admin: 12/17/20 08:09 Dose: 1 each Documented by: Sitagliptin Phosphate (Sitagliptin 100 Mg Tab) 100 mg PO DAILY [facility] Last Admin: 12/17/20 08:08 Dose: 100 mg Documented by: Sodium Chloride (Sodium Chloride 0.9% 10 Ml Syringe) 10 ml FLUSH ASDIRECTED PRN PRN Reason: Keep Vein Open Last Admin: 12/17/20 03:54 Dose: 10 ml Documented by: Tramadol HCl (Tramadol 50 Mg Tab) 50 mg PO Q6H PRN PRN Reason: Breakthrough Pain Vancomycin HCl (Pharmacy To Dose - Vancomycin) 1 dose .XX ASDIRECTED [facility] Discontinued Medications Gadoteridol (Gadoteridol 279.3 Mg/Ml 20 Ml Sdv) 20 ml IV . DIRECTED ONE Stop: 12/16/20 08:41 Last Admin: 12/16/20 09:28 Dose: 20 ml Documented by: Vancomycin HCl (Vancomycin 2 Gm/400 Ml) 400 mls @ 200 mls/hr IV Q12H [facility] Last Admin: 12/17/20 04:27 Dose: Not Given Documented by: - Exam General: Alert, Oriented HEENT: Pupils Equal Extremities: No: Leg Pain Skin: Warm Neurological: No New Focal Deficit Psy/Mental Status: Alert, Normal Affect - Patient Data Lab Results Last 24 hrs: Laboratory Results - last 24 hr 12/16/20 12/16/20 12/17/20 Range/Units 13:17 17:45 03:30 WBC (3.2-10.1) x10-3/uL RBC (3.90-5.90) x10(6)uL Hgb (12.9-17.7) g/dL Hct (38.3-50.1) % MCV (80.8-98.7) fL MCH (27.0-33.3) pg MCHC (28.7-35.3) g/dL RDW (12.4-15.0) % Plt Count (117-477) x10(3)uL MPV (6.7-11.0) fL Neut % (Auto) (40.3-71.8) % Lymph % (Auto) (15.8-45.3) % [place] % (Auto) (5.5-15.2) % Eos % (Auto) (0.1-6.8) % Baso % (Auto) (0.3-3.8) % Neut # (Auto) (1.7-6.9) x10-3/uL Lymph # (Auto) (0.5-4.5) x10-3/uL [place] # (Auto) (0.0-1.2) x10-3/uL Eos # (Auto) (0.0-0.6) x10-3/uL Baso # (Auto) (0.0-0.3) x10-3/uL ESR (0-15) mm/hr Sodium (135-145) mmol/L Potassium (3.5-5.3) mmol/L Chloride (100-110) mmol/L Carbon Dioxide (21-32) mmol/L BUN (7-18) mg/dL Creatinine (0.70-1.30) mg/dL Est Cr Clr Drug Dosing mL/min Estimated GFR (MDRD) (>60) BUN/Creatinine Ratio (9-20) Glucose (80-116) mg/dL POC Glucose 168 H 155 H (80-116) mg/dL Calcium (8.6-10.2) mg/dL C-Reactive Protein (0.5-0.9) mg/dL Vancomycin Trough 28.2 H (<0.8) ug/mL 12/17/20 12/17/20 12/17/20 Range/Units 03:30 03:30 03:30 WBC 6.4 (3.2-10.1) x10-3/uL RBC 3.66 L (3.90-5.90) x10(6)uL Hgb 10.4 L (12.9-17.7) g/dL Hct 32.3 L (38.3-50.1) % MCV 88.0 (80.8-98.7) fL MCH 28.3 (27.0-33.3) pg MCHC 32.2 (28.7-35.3) g/dL RDW 13.9 (12.4-15.0) % Plt Count 248 (117-477) x10(3)uL MPV 7.7 (6.7-11.0) fL Neut % (Auto) 77.7 H (40.3-71.8) % Lymph % (Auto) 5.4 L (15.8-45.3) % [place] % (Auto) 10.8 (5.5-15.2) % Eos % (Auto) 5.4 (0.1-6.8) % Baso % (Auto) 0.7 (0.3-3.8) % Neut # (Auto) 5.0 (1.7-6.9) x10-3/uL Lymph # (Auto) 0.3 L (0.5-4.5) x10-3/uL [place] # (Auto) 0.7 (0.0-1.2) x10-3/uL Eos # (Auto) 0.3 (0.0-0.6) x10-3/uL Baso # (Auto) 0.0 (0.0-0.3) x10-3/uL ESR 33 H (0-15) mm/hr Sodium 138 (135-145) mmol/L Potassium 4.6 (3.5-5.3) mmol/L Chloride 104 (100-110) mmol/L Carbon Dioxide 23 (21-32) mmol/L BUN 33 H (7-18) mg/dL Creatinine 1.5 H (0.70-1.30) mg/dL Est Cr Clr Drug Dosing 55.33 mL/min Estimated GFR (MDRD) 47 L (>60) BUN/Creatinine Ratio 22.0 H (9-20) Glucose 169 H (80-116) mg/dL POC Glucose (80-116) mg/dL Calcium 8.8 (8.6-10.2) mg/dL C-Reactive Protein 9.1 H* (0.5-0.9) mg/dL Vancomycin Trough (<0.8) ug/mL 12/17/20 Range/Units 08:03 WBC (3.2-10.1) x10-3/uL RBC (3.90-5.90) x10(6)uL Hgb (12.9-17.7) g/dL Hct (38.3-50.1) % MCV (80.8-98.7) fL MCH (27.0-33.3) pg MCHC (28.7-35.3) g/dL RDW (12.4-15.0) % Plt Count (117-477) x10(3)uL MPV (6.7-11.0) fL Neut % (Auto) (40.3-71.8) % Lymph % (Auto) (15.8-45.3) % [place] % (Auto) (5.5-15.2) % Eos % (Auto) (0.1-6.8) % Baso % (Auto) (0.3-3.8) % Neut # (Auto) (1.7-6.9) x10-3/uL Lymph # (Auto) (0.5-4.5) x10-3/uL [place] # (Auto) (0.0-1.2) x10-3/uL Eos # (Auto) (0.0-0.6) x10-3/uL Baso # (Auto) (0.0-0.3) x10-3/uL ESR (0-15) mm/hr Sodium (135-145) mmol/L Potassium (3.5-5.3) mmol/L Chloride (100-110) mmol/L Carbon Dioxide (21-32) mmol/L BUN (7-18) mg/dL Creatinine (0.70-1.30) mg/dL Est Cr Clr Drug Dosing mL/min Estimated GFR (MDRD) (>60) BUN/Creatinine Ratio (9-20) Glucose (80-116) mg/dL POC Glucose 177 H (80-116) mg/dL Calcium (8.6-10.2) mg/dL C-Reactive Protein (0.5-0.9) mg/dL Vancomycin Trough (<0.8) ug/mL Result Diagrams: 12/17/20 03:30 12/17/20 03:30 Rui Results Last 24 hrs: Microbiology 12/15/20 13:45 Aerobic Blood Culture - Preliminary Blood - Venous - Lab Draw NO GROWTH AFTER 1 DAY Anaerobic Blood Culture - Preliminary NO GROWTH AFTER 1 DAY 12/15/20 13:50 Aerobic Blood Culture - Preliminary Blood - Venous NO GROWTH AFTER 1 DAY Anaerobic Blood Culture - Preliminary NO GROWTH AFTER 1 DAY Sepsis Event Note - Evaluation Sepsis Screening Result: No Definite Risk - Focused Exam Vital Signs: Vital Signs Temp Temp Pulse Pulse Resp BP BP 12/17/20 08:06 76 118/76 12/17/20 04:00 98.8 F 79 20 120/68 12/17/20 00:00 99.1 F 80 20 124/70 Pulse Ox 12/17/20 08:06 12/17/20 04:00 93 L 12/17/20 00:00 95 - Problem List & Annotations (1) Diabetic infection of right foot SNOMED Code(s): 84411630 Code(s): E11.628 - TYPE 2 DIABETES MELLITUS WITH OTHER SKIN COMPLICATIONS; L08.9 - LOCAL INFECTION OF THE SKIN AND SUBCUTANEOUS TISSUE, UNSP Status: Acute Current Visit: Yes (2) Diabetes type 2, controlled SNOMED Code(s): 26316496, 850421048 Code(s): E11.9 - TYPE 2 DIABETES MELLITUS WITHOUT COMPLICATIONS Status: Chronic Current Visit: Yes Qualifiers: Diabetes mellitus watcher [employer] goods insulin use: without watcher [employer] goods use Diabetes mellitus complication status: without complication Qualified Code(s): E11.9 - Type 2 diabetes mellitus without complications (3) Obesity SNOMED Code(s): 890407011, 369687658 Code(s): E66.9 - OBESITY, UNSPECIFIED Status: Chronic Current Visit: Yes Qualifiers: Obesity type: due to excess calories (4) Ischemic cardiomyopathy SNOMED Code(s): 939988543 Code(s): I25.5 - ISCHEMIC CARDIOMYOPATHY Status: Acute Current Visit: Yes (5) CAD (coronary artery disease) SNOMED Code(s): 60772467 Code(s): I25.10 - ATHSCL HEART DISEASE OF [place] CORONARY ARTERY W/O ANG PCTRS Status: Chronic Current Visit: Yes (6) CKD (chronic kidney disease) SNOMED Code(s): 690112470 Code(s): N18.9 - CHRONIC KIDNEY DISEASE, UNSPECIFIED Status: Chronic Current Visit: Yes Qualifiers: Chronic kidney disease stage: stage 2 (mild) Qualified Code(s): N18.2 - Ch ronic kidney disease, stage 2 (mild) (7) HTN (hypertension) SNOMED Code(s): 45484037 Code(s): I10 - ESSENTIAL (PRIMARY) HYPERTENSION Status: Chronic Current Visit: Yes Qualifiers: Hypertension type: primary hypertension Qualified Code(s): I10 - Essential (primary) hypertension - Problem List Review Problem List Initiated/Reviewed/Updated: Yes - My Orders Last 24 Hours: My Active Orders 12/16/20 09:00 Aspirin [Halfprin] 81 mg PO DAILY Furosemide [Lasix] 40 mg PO DAILY Metoprolol Succinate [Toprol XL] 100 mg PO DAILY SitaGLIPtin [Januvia] 100 mg PO DAILY 12/17/20 12:00 VANCOmycin 1 GM/200 ML 200 ml IV Q12H 12/19/20 11:30 VANCOMYCIN TROUGH [CHEM] Timed - Plan Plan:: Continue IV antibiotics. MRI showed no evidence of osteomyelitis. I appreciate the consultation from general surgery. I will continue one more day of IV antibiotics, and plan for discharge tomorrow.
[2020-12-17] MEDS: VANCOmycin 1 GM/200 ML 200 ML IV SCH (12:27)
[2020-12-17] MEDS: cefTRIAXone 1 GM Vial IVPUSH SCH (12:29)
[2020-12-17] MEDS: Acetaminophen 325 MG Tab PO PRN (17:21)
[2020-12-17] MEDS: atorvaSTATin 40 MG Tab PO SCH (20:36)
[2020-12-18] MEDS: VANCOmycin 1 GM/200 ML 200 ML IV SCH (00:21)
[2020-12-18] MEDS: Acetaminophen 325 MG Tab PO PRN (00:34)
[2020-12-18] MEDS: Ketorolac 30 MG/ML SDV IVPUSH PRN (01:35)
[2020-12-18] MEDS: metFORMIN 1,000 MG Tab PO SCH (08:15)
[2020-12-18] MEDS: Calcium Carbonate 500 MG Tablet PO SCH (08:16)
[2020-12-18] MEDS: Furosemide 40 MG Tab PO SCH (08:16)
[2020-12-18] MEDS: Aspirin 81 MG Tab.EC PO SCH (08:16)
[2020-12-18] MEDS: VALSARTAN PO SCH (08:17)
[2020-12-18] MEDS: Multivitamin Tab PO SCH (08:17)
[2020-12-18] MEDS: SACUBITRIL PO SCH (08:17)
[2020-12-18] MEDS: Metoprolol Succinate 100 MG Tab.ER PO SCH (08:17)
[2020-12-18 08:18] VITALS: BP 132/67; PULSE 83
--- NOTE | 2020-12-18 12:32 | DISCH ---
DISCHARGE DATE: 12/18/2020 REASON FOR ADMISSION: 1. Cellulitis, right foot. 2. Diabetic foot ulcer. 3. Obesity. 4. Type 2 diabetes. 5. History of CHF. 6. Chronic kidney disease. DISCHARGE DIAGNOSES: 1. Cellulitis, right foot. 2. Diabetic foot ulcer. 3. Obesity. 4. Type 2 diabetes. 5. History of CHF. 6. Chronic kidney disease. CONSULTATIONS: Dr. Magana for debridement. BRIEF HISTORY AND HOSPITAL COURSE: This is a 65-year-old male who was admitted to the clinic after he presented with a foot ulcer along with systemic symptoms of fever and chills. He was treated with Rocephin and vancomycin. Sharp debridement of the wound was performed by Dr. Magana. He has improved enough to go home today on oral antibiotics. I will send him home on cephalexin 500 mg p.o. t.i.d. x10 days. He is to stay off it and also see Podiatry in the clinic. A referral has been completed. I spent more than 35 minutes in the discharge of the patient. /[id number] CLARISSE/SHANDA
== END 2020-12-18 11:25 | disposition home or self-care (01) | DRG 264 ==
LOC: FB.MS 12:39
PROVIDERS: ADMIT Family Medicine; ATTEND Family Medicine
PROC: 0JBQ0ZZ Excision of Right Foot Subcutaneous Tissue and Fascia, Open Approach (ICD-10-PCS; principal; 2020-12-15)
DX: E11.52 Type 2 diabetes mellitus with diabetic peripheral angiopathy with gangrene (principal); L03.115 Cellulitis of right lower limb; I13.0 Hypertensive heart and chronic kidney disease with heart failure and stage 1 through stage 4 chronic kidney disease, or unspecified chronic kidney disease; I96 Gangrene, not elsewhere classified; E11.621 Type 2 diabetes mellitus with foot ulcer; E11.628 Type 2 diabetes mellitus with other skin complications; E78.00 Pure hypercholesterolemia, unspecified; I25.10 Atherosclerotic heart disease of native coronary artery without angina pectoris; G47.30 Sleep apnea, unspecified; E66.9 Obesity, unspecified; N18.2 Chronic kidney disease, stage 2 (mild); I25.5 Ischemic cardiomyopathy; E11.22 Type 2 diabetes mellitus with diabetic chronic kidney disease; N18.9 Chronic kidney disease, unspecified; I50.9 Heart failure, unspecified; Z90.89 Acquired absence of other organs; Z95.5 Presence of coronary angioplasty implant and graft; Z98.84 Bariatric surgery status; Z79.84 Long term (current) use of oral hypoglycemic drugs; I25.2 Old myocardial infarction; Z95.0 Presence of cardiac pacemaker; Z98.1 Arthrodesis status; Z79.82 Long term (current) use of aspirin; Z79.899 Other long term (current) drug therapy
CPT/HCPCS: 36410; 36415; 73720-RT; 80048; 80053; 80202; 82947; 85025; 85651; 86140; 87040; 87070; A9270-GY; A9579; J0696; J1885; J3370

== ENCOUNTER 2021-04-07 09:04 | Day surgery (SDC) | payer OTHER ==
[2021-04-07] MEDS ORDERED: Midazolam 1 MG/ML 2 ML SDV IV ONE (09:05)
[2021-04-07] MEDS ORDERED: fentaNYL 100 MCG/2 ML SDV IV ONE (09:05)
[2021-04-07] MEDS: Sodium Chloride 0.9% 10 ML Syringe FLUSH PRN (09:48)
[2021-04-07] MEDS: Lactated Ringers 1,000 ML IV SCH (09:49)
[2021-04-07] MEDS: acetaZOLAMIDE 500 MG Cap.ER PO ONE (11:23)
[2021-04-07 12:36] VITALS: BP 126/73; PULSE 67
--- NOTE | 2021-04-07 12:45 | OR ---
DATE OF OPERATION: 04/07/2021 SURGEON: Ericka Reed MD PREOPERATIVE DIAGNOSIS: Visually significant cataract, right eye. POSTOPERATIVE DIAGNOSIS: Visually significant cataract, right eye. PROCEDURES PERFORMED: Phacoemulsification with intraocular lens placement, right eye. ASSISTANTS: None. ANESTHESIA: Local with sedation. COMPLICATIONS: None. BLOOD LOSS: None. IMPLANTS: A pre-loaded DCB00 20.0 diopter lens implanted. CDE: 1.78. DESCRIPTION OF PROCEDURE: After risks and benefits were reviewed with the patient, consent was obtained in the preoperative area, and the operative eye was marked with a surgical pen. In the preoperative area, a pledget was used to dilate the pupil consisting of a mixture of phenylephrine 10%, cyclopentolate 2%, moxifloxacin 0.5%, and bupivacaine 0.75%. The patient was taken to the operating room, where a time-out was performed, and the patient was placed under monitored anesthesia care. Topical tetracaine was used for anesthesia. The operative eye was prepped and draped for ophthalmic surgery, and the microscope was brought into position and focused. A paracentesis incision was made, followed by injection of preservative-free 1% lidocaine into the anterior chamber, followed by injection of Viscoat into the anterior chamber. A microkeratome blade was used to make a corneal limbal incision temporally. A cystotome was used to make the beginning of the capsulorrhexis, which was carried around 360 degrees in a curvilinear fashion using Utrata forceps. A Garcia cannula with BSS was used to hydrodissect and hydrodelineate the nucleus. The nucleus was removed in a divide and conquer manner using phacoemulsification. Irrigation and aspiration were used to remove the remaining cortical material. Provisc was used to inflate the capsular bag, and a pre-loaded DCB00 20.0 diopter lens, serial number [id number] was injected into the capsular bag. A Sinskey hook was used to position and center the lens. Next, irrigation and aspiration was used to remove any remaining viscoelastic and cortical material from the anterior chamber. BSS on a cannula was used to inflate the anterior chamber and hydrate the wound. The wound was checked and found to be watertight. 1 mg of Moxifloxacin was injected into the anterior chamber. Drapes were removed and the eye was cleaned. A drop of brimonidine 0.2% and a drop of TobraDex was placed. The eye was shielded, and the patient was taken to the recovery room in stable condition. /[id number] CURT/SHANDA
== END 2021-04-07 11:55 | disposition home or self-care (01) ==
LOC: FB.SDS 09:04
PROVIDERS: ATTEND Ophthalmology
DX: E11.36 Type 2 diabetes mellitus with diabetic cataract (principal); H25.811 Combined forms of age-related cataract, right eye; H26.492 Other secondary cataract, left eye; E11.3293 Type 2 diabetes mellitus with mild nonproliferative diabetic retinopathy without macular edema, bilateral; H47.012 Ischemic optic neuropathy, left eye; E66.01 Morbid (severe) obesity due to excess calories; I10 Essential (primary) hypertension; I25.2 Old myocardial infarction; I25.10 Atherosclerotic heart disease of native coronary artery without angina pectoris; E78.00 Pure hypercholesterolemia, unspecified; Z98.890 Other specified postprocedural states; Z87.891 Personal history of nicotine dependence; Z88.0 Allergy status to penicillin; Z68.41 Body mass index [BMI] 40.0-44.9, adult; Z79.899 Other long term (current) drug therapy; Z79.84 Long term (current) use of oral hypoglycemic drugs; Z79.4 Long term (current) use of insulin; Z79.82 Long term (current) use of aspirin
CPT/HCPCS: 00142-QZ; 82947; A9270-GY; J2250; J3010; J7120; V2632

== ENCOUNTER 2023-11-18 12:16 | Inpatient (IN) | payer MEDICARE, OTHER ==
[2023-11-18] MEDS ORDERED: Non-Formulary Medication 1 Each (Docusate Sodium [Enemeez] 283 MG/5 ML Enema) RECTAL PRN (13:16)
[2023-11-18] MEDS ORDERED: Ondansetron 4 MG Tab.DIS PO PRN (13:16)
[2023-11-18] MEDS ORDERED: Famotidine 20 MG Tab PO PRN (13:16)
[2023-11-18] MEDS ORDERED: Nitroglycerin 0.4 MG Tab.SL SL PRN (13:16)
[2023-11-18] MEDS ORDERED: Carboxymethylcellulose Sodium 0.5% Ophth Soln 15 ML Bottle EYEBOTH PRN (13:49)
[2023-11-18] MEDS: oxyCODONE 5 MG Tab PO PRN (14:26)
[2023-11-18] MEDS: Acetaminophen 325 MG Tab PO PRN (14:27)
[2023-11-18] MEDS ORDERED: Insulin Lispro 100 Unit/ML 3 ML KwikPen SUBCUT ONE (17:40)
[2023-11-18] MEDS: Calcium Carbonate 500 MG Tablet PO SCH (17:45)
[2023-11-18] MEDS: Insulin Lispro 100 Unit/ML 3 ML KwikPen SUBCUT SCH (17:45)
[2023-11-18] MEDS: VALSARTAN PO SCH (20:25)
[2023-11-18] MEDS: SACUBITRIL PO SCH (20:25)
[2023-11-18] MEDS: Ferrous Sulfate 325 MG Tab PO SCH (20:25)
[2023-11-18] MEDS: atorvaSTATin 40 MG Tab PO SCH (20:25)
[2023-11-18] MEDS: Multivitamin Tab PO SCH (20:26)
[2023-11-18] MEDS: Sennosides/Docusate Sodium 50-8.6 MG Tab PO SCH (20:26)
[2023-11-19] MEDS: Aspirin 81 MG Tab.EC PO SCH (09:04)
[2023-11-19] MEDS: Enoxaparin 40 MG/0.4 ML Syringe SUBCUT SCH (09:04)
[2023-11-19] MEDS: Cholecalciferol (Vitamin D3) 25 MCG Tab PO SCH (09:05)
[2023-11-19] MEDS: Polyethylene Glycol 3350 Powder 17 GM Packet PO PRN (09:11)
[2023-11-19] MEDS: Magnesium Hydroxide 400 MG/5 ML Susp 30 ML Cup PO PRN (20:46)
[2023-11-21 05:35] LABS: HEMATOCRIT 25.5 % (38.3-50.1); HEMOGLOBIN 8.3 g/dL (12.9-17.7); MEAN CORPUSCULAR HEMOGLOBIN 26.4 pg (27.0-33.3); MEAN CORPUSCULAR HGB CONC 32.6 g/dL (28.7-35.3); MEAN CORPUSCULAR VOLUME 80.9 fL (80.8-98.7); MEAN PLATELET VOLUME 8.2 fL (6.7-11.0); PLATELET COUNT,PLT 173 x10(3)uL (117-477); RED BLOOD CELL COUNT 3.15 x10(6)uL (3.90-5.90); RED CELL DISTRIBUTION WIDTH 16.9 % (12.4-15.0); WHITE BLOOD CELL COUNT,WBC 3.8 x10-3/uL (3.2-10.1)
[2023-11-21 05:43] LABS: A/G RATIO 0.8; ALANINE AMINOTRANSFERASE,ALT 14 U/L (12-36); ALBUMIN 2.6 g/dL (3.2-4.6); ALKALINE PHOSPHATASE 62 IU/L (56-112); ASPARTATE AMNIOTRANSFERASE,AST 20 IU/L (5-25); BILIRUBIN TOTAL 0.8 mg/dL (0.1-1.3); BLOOD UREA NITROGEN,BUN 24 mg/dL (7-18); BUN/CREATININE RATIO 18.5 (9-20); CALCIUM 8.4 mg/dL (8.6-10.2); CARBON DIOXIDE,CO2 29 mmol/L (21-32); CHLORIDE,CL 103 mmol/L (100-110); CREATININE 1.3 mg/dL (0.70-1.30); EST CRCL DRUG DOSING (CG) 61.35 mL/min; ESTIMATED GFR 61 mL/min (>60); GLUCOSE RANDOM 181 mg/dL (80-116); POTASSIUM,K 4.7 mmol/L (3.5-5.3); PROTEIN TOTAL,TP 5.7 g/dL (6.0-8.0); SODIUM,NA 138 mmol/L (135-145)
[2023-11-21 05:55] LABS: BASOPHILS PERCENT MAN 1 % (0-2); EOSINOPHILS PERCENT MAN 9 % (0-5); LYMPHOCYTES PERCENT MAN 28 % (13-37); MONOCYTES PERCENT MAN 11 % (4-12); SEG NEUTROPHILS PERCENT MAN 51 % (46-82)
[2023-11-21 05:56] LABS: ANISOCYTOSIS FEW; POIKILOCYTOSIS FEW
[2023-11-21] MEDS: Furosemide 20 MG Tab PO SCH (08:50)
[2023-11-21] MEDS: oxyCODONE 5 MG Tab PO ONE (20:28)
[2023-11-25] MEDS: Cyclobenzaprine 10 MG Tab PO PRN (20:46)
[2023-11-26] MEDS: LORazepam 0.5 MG Tab PO PRN (21:01)
[2023-12-01 13:08] LABS: TSH ULTRASENSITIVE 0.97 IU/mL (0.36-3.74); VITAMIN D,25-HYDROXY 48.4 ng/mL (30.0-100.0)
[2023-12-03 00:16] LABS: TISSUE TRANSGLUTAMINAS TTG,IGA <1.02 FLU (0.00-4.99); TISSUE TRANSGLUTAMINASE AB,IGG <0.82 FLU (0.00-4.99)
[2023-12-03 12:08] LABS: PARATHYROID HORMONE,INTACT 46 pg/mL (15-65)
[2023-12-03] MEDS ORDERED: Insulin Lispro 100 Unit/ML 3 ML KwikPen SUBCUT ONE (17:27)
[2023-12-04] MEDS: metFORMIN 500 MG Tab.ER PO SCH (17:29)
[2023-12-04 21:05] LABS: ALPHA 1 GLOBULIN 0.41 g/dL (0.19-0.46); ALPHA 2 GLOBULIN 0.64 g/dL (0.48-1.05); BETA GLOBULIN 0.62 g/dL (0.48-1.10); GAMMA 0.62 g/dL (0.62-1.51); TOTAL PROTEIN,SERUM 5.9 g/dL (6.3-8.2)
[2023-12-08 09:06] LABS: EOSINOPHILS ABSOLUTE AUTO 0.4 x10-3/uL (0.0-0.6); EOSINOPHILS PERCENT AUTO 9.8 % (0.1-6.8); HEMATOCRIT 30.7 % (38.3-50.1); HEMOGLOBIN 9.8 g/dL (12.9-17.7); LYMPHOCYTES ABSOLUTE AUTO 0.8 x10-3/uL (0.5-4.5); LYMPHOCYTES PERCENT AUTO 19.6 % (15.8-45.3); MEAN CORPUSCULAR HEMOGLOBIN 26.1 pg (27.0-33.3); MEAN CORPUSCULAR HGB CONC 31.8 g/dL (28.7-35.3); MEAN CORPUSCULAR VOLUME 82.3 fL (80.8-98.7); MEAN PLATELET VOLUME 8.1 fL (6.7-11.0); MONOCYTES ABSOLUTE AUTO 0.4 x10-3/uL (0.0-1.2); MONOCYTES PERCENT AUTO 9.6 % (5.5-15.2); NEUTROPHILS ABSOLUTE AUTO 2.4 x10-3/uL (1.7-6.9); PLATELET COUNT,PLT 278 x10(3)uL (117-477); RED CELL DISTRIBUTION WIDTH 17.2 % (12.4-15.0); WHITE BLOOD CELL COUNT,WBC 3.9 x10-3/uL (3.2-10.1)
[2023-12-08 09:11] LABS: RED BLOOD CELL COUNT 3.73 x10(6)uL (3.90-5.90)
[2023-12-08 13:55] VITALS: BP 118/68; PULSE 90
== END 2023-12-08 13:00 | disposition home or self-care (01) | DRG 560 ==
LOC: FB.MS 12:16
PROVIDERS: ADMIT Family Medicine; ATTEND Family Medicine
DX: S72.002D Fracture of unspecified part of neck of left femur, subsequent encounter for closed fracture with routine healing (principal); I13.0 Hypertensive heart and chronic kidney disease with heart failure and stage 1 through stage 4 chronic kidney disease, or unspecified chronic kidney disease; I50.42 Chronic combined systolic (congestive) and diastolic (congestive) heart failure; N18.32 Chronic kidney disease, stage 3b; I25.10 Atherosclerotic heart disease of native coronary artery without angina pectoris; E11.22 Type 2 diabetes mellitus with diabetic chronic kidney disease; D64.9 Anemia, unspecified; K59.00 Constipation, unspecified; F32.A Depression, unspecified; Z68.35 Body mass index [BMI] 35.0-35.9, adult; M19.90 Unspecified osteoarthritis, unspecified site; M54.9 Dorsalgia, unspecified; G89.29 Other chronic pain; K21.9 Gastro-esophageal reflux disease without esophagitis; I25.5 Ischemic cardiomyopathy; E66.01 Morbid (severe) obesity due to excess calories; G47.30 Sleep apnea, unspecified; M81.0 Age-related osteoporosis without current pathological fracture; Z88.0 Allergy status to penicillin; Z79.4 Long term (current) use of insulin; Z95.0 Presence of cardiac pacemaker; Z95.5 Presence of coronary angioplasty implant and graft; Z98.1 Arthrodesis status; Z98.42 Cataract extraction status, left eye; Z79.84 Long term (current) use of oral hypoglycemic drugs; Z90.49 Acquired absence of other specified parts of digestive tract; Z87.01 Personal history of pneumonia (recurrent); Z79.82 Long term (current) use of aspirin; Z86.010 Personal history of colon polyps; Z79.899 Other long term (current) drug therapy; Z98.890 Other specified postprocedural states; W01.0XXD Fall on same level from slipping, tripping and stumbling without subsequent striking against object, subsequent encounter
CPT/HCPCS: 36415; 73502-LT; 80053; 82306; 82947; 83735; 83970; 84155; 84165; 84443; 85025; 86364; 94150; 97110-GO; 97110-GP; 97112-GP; 97116-GP; 97140-GP; 97161-GP; 97165-GO; 97530-GO; 97530-GP; 97535-GO; 97542-GO; 99305; 99307; 99308; 99315; A9270-GY; J1650; J1815